=== PATIENT | male | born 2000 | race Caucasian/White ===

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

== ENCOUNTER → 2020-04-20 | Outpatient (CLI) | payer BC ==
--- NOTE | 2020-04-20 20:00 | ECHOF ---
Referral Reason:R07.89 Chest Pain MEASUREMENTS -------- HEIGHT: 193.0 cm WEIGHT: 72.6 kg BP: IVSd: 1.2 cm (0.6 - 1.1) LVIDd: 4.3 cm (3.9 - 5.3) LVPWd: 1.1 cm (0.6 - 1.1) IVSs: 1.5 cm LVIDs: 2.5 cm LVPWs: 1.7 cm RVIDd: 3.9 cm (< 3.3) LAESV Index (A-L): 24.18 ml/m Ao Diam: 2.9 cm (2.0 - 3.7) AV Cusp: 2.5 cm (1.5 - 2.6) EPSS: 0.4 cm MV E Ming: 0.79 m/s MV DecT: 224 ms MV A Ming: 0.51 m/s MV E/A Ratio: 1.55 RAP: 5.00 mmHg RVSP: 33.69 mmHg MV EF SLOPE: 118.91 mm/s (70 - 150) MV EXCURSION: 19.93 mm (> 18.000) FINDINGS -------- Sinus rhythm. This was a technically good study. The left ventricular size is normal. Left ventricular wall thickness is normal. Overall left vent ricular systolic function is normal with, an EF between 55 - 60 %. The diastolic filling pattern is normal for the age of the patient 6.45. The right ventricle is mildly enlarged. Normal LA size by volume 22+/-6 ml/m2. The right atrial size is normal. Interatrial and interventricular septum intact. The aortic valve is trileaflet and appears structurally normal. There is no evidence of aortic regu rgitation. There is no evidence of aortic stenosis. There is trace mitral regurgitation. Mild tricuspid regurgitation present. There is no evidence of pulmonary hypertension. The right v entricular systolic pressure, as measured by Doppler, is 33.69mmHg. There is no pulmonic regurgitation present. The aortic root size is normal. The inferior vena cava is mildly dilated. There is no pericardial effusion. CONCLUSIONS -------- 1. The left ventricular size is normal. 2. Left ventricular wall thickness is normal. 3. Overall left ventricular systolic function is normal with, an EF between 55 - 60 %. 4. The diastolic filling pattern is normal for the age of the patient 6.45 5. The right ventricle is mildly enlarged. 6. Mild tricuspid regurgitation present. 7. The inferior vena cava is mildly dilated. FLASH WELDING MACHINE OPERATOR: Maria G Grace RDCS
== END | disposition home or self-care (01) ==
LOC: RADECHMAIN 10:23
PROVIDERS: ATTEND Family Medicine
DX: I07.1 Rheumatic tricuspid insufficiency (principal)
CPT/HCPCS: 93306